=== PATIENT | male | born 1980 | race Caucasian/White ===

== ENCOUNTER 2017-05-25 09:25 | Emergency (ER) | payer MEDICAID ==
[~2017-05-25] VITALS: Ht 160 cm; Wt 69.7 kg
[2017-05-25] MEDS ORDERED: KETOROLAC 30 MG/1 ML IM ONE (10:00)
[2017-05-25 10:14] LABS: HEMATOCRIT 42.2 % (39.2-51.8); HEMOGLOBIN 14.5 g/dL (13.7-18.0); WHITE BLOOD COUNT 12.2 x10^3/uL (3.4-10)
[2017-05-25 10:16] LABS: BLOOD UREA NITROGEN 17 mg/dL (7-18)
[2017-05-25 11:26] VITALS: BP 118/65
== END 2017-05-25 11:27 | disposition home or self-care (01) ==
LOC: ED 10:16
DX: R07.9 Chest pain, unspecified (principal); F17.200 Nicotine dependence, unspecified, uncomplicated
CPT/HCPCS: 36415; 71020; 80048; 81003; 82040; 85025; 93005; 96372; 99285; J1885

== ENCOUNTER 2018-05-09 06:26 | Emergency (ER) | payer MEDICAID ==
[~2018-05-09] VITALS: Ht 158.8 cm; Wt 63.9 kg
[2018-05-09 06:31] VITALS: BP 130/80
[2018-05-09] MEDS ORDERED: DEXAMETHASONE 4 MG TABLET ONE (06:51)
[2018-05-09] MEDS ORDERED: DEXAMETHASONE 4 MG TABLET PO ONE (07:00)
== END 2018-05-09 06:57 | disposition home or self-care (01) ==
LOC: ED 06:50
DX: K02.9 Dental caries, unspecified (principal); J02.0 Streptococcal pharyngitis; K21.9 Gastro-esophageal reflux disease without esophagitis; F17.210 Nicotine dependence, cigarettes, uncomplicated
CPT/HCPCS: 99283

== ENCOUNTER 2019-07-19 05:38 | Emergency (ER) | payer MEDICAID, OTHER ==
[~2019-07-19] VITALS: Ht 160 cm; Wt 67.3 kg
[2019-07-19] MEDS ORDERED: ONDANSETRON 2MG/ML, 2ML ONE (05:56)
[2019-07-19] MEDS ORDERED: MAALOX/HYOSCYAMINE/LIDOCAINE 45 ML BTL ONE (05:57)
[2019-07-19] MEDS ORDERED: FAMOTIDINE 20 MG/2 ML ONE (05:57)
[2019-07-19] MEDS ORDERED: SODIUM CHLORIDE FLUSH 10ML SYR IVF ONE (06:00)
[2019-07-19] MEDS ORDERED: ONDANSETRON 2MG/ML, 2ML IVPush ONE (06:00)
[2019-07-19] MEDS ORDERED: FAMOTIDINE 20 MG/2 ML IV ONE (06:00)
[2019-07-19] MEDS ORDERED: MAALOX/HYOSCYAMINE/LIDOCAINE 45 ML BTL PO ONE (06:00)
--- NOTE | 2019-07-19 06:09 | NUR ---
THIS IS A 39Y M THAT COMES IN FOR ABD PAIN X2-3WKS. PT STS HE HAS HAD EPIGASTRIC PAIN OFF AND ON FOR WEEKS WORSENING WHEN HE WAKES IN THE MORNINGS, HE USUALLY VOMITS AND THE PAIN IS IMPROVED. PT CONNECTED TO MONITORING, VSS, NADN. PT MEDICATED PER MAR
[2019-07-19 06:17] LABS: BASOPHILS # (AUTO) 0.05 x10^3/uL (0-0.1); BASOPHILS % (AUTO) 1 % (0-1); EOSINOPHILS # (AUTO) 0.23 x10^3/uL (0-0.4); EOSINOPHILS % (AUTO) 3 % (1-7); LYMPHOCYTES # (AUTO) 2.91 x10^3/uL (1-3.4); LYMPHOCYTES % (AUTO) 31 % (22-44); MD NO; MEAN CORPUSCULAR HEMOGLOBIN 31.2 pg (27.5-34.5); MEAN CORPUSCULAR HGB CONC 33.4 g/dL (33.2-36.2); MEAN CORPUSCULAR VOLUME 93.6 fL (81-97); MONOCYTES # (AUTO) 0.67 x10^3/uL (0.2-0.8); MONOCYTES % (AUTO) 7 % (2-9); NEUTROPHILS # (AUTO) 5.49 x10^3/uL (1.8-6.8); NEUTROPHILS % (AUTO) 59 % (42-75); PLATELET COUNT 336 x10^3/uL (130-400); RED BLOOD COUNT 4.69 x10^6/uL (4.38-5.82); RED CELL DISTRIBUTION WIDTH 13.1 % (9.4-14.8)
[2019-07-19 06:29] LABS: ALANINE AMINOTRANSFERASE 223 U/L (12-78); ALBUMIN 3.7 g/dL (3.4-5.0); ANION GAP 4 mmol/L (5-15); CALCIUM 8.9 mg/dL (8.5-10.1); CHLORIDE 111 mmol/L (98-107); CREATININE 0.92 mg/dL (0.7-1.3)
[2019-07-19 06:32] LABS: ALKALINE PHOSPHATASE 107 U/L (45-117); BILIRUBIN,TOTAL 0.2 mg/dL (0.2-1.0); TOTAL PROTEIN 7.7 g/dL (6.4-8.2)
--- NOTE | 2019-07-19 06:49 | NUR ---
REPORT RECEIVED FROM ANA PEÑA.
[2019-07-19 06:54] VITALS: BP 113/73
--- NOTE | 2019-07-19 06:55 | NUR ---
PT IS RESTING ON GURNEY. 1L NS BOLUS STARTED. URINE COLLECTED SENT TO LAB. VS STABLE. CALL LIGHT IN REACH. DENIES FURTHER NEEDS AT THIS TIME.
[2019-07-19] MEDS ORDERED: SODIUM CHLORIDE 0.9% 1,000ML IVBOLUS ONE (07:00)
[2019-07-19 07:05] LABS: CULTURE INDICATED? NO; MICROSCOPIC NOT IND
--- NOTE | 2019-07-19 07:43 | NUR ---
Patient given discharge instructions and they have confirmed that they understand the instructions. Patient ambulatory with steady gait.
== END 2019-07-19 07:45 | disposition home or self-care (01) ==
LOC: ED 05:58
DX: K29.00 Acute gastritis without bleeding (principal); K85.00 Idiopathic acute pancreatitis without necrosis or infection; B19.10 Unspecified viral hepatitis B without hepatic coma; K21.9 Gastro-esophageal reflux disease without esophagitis; R11.2 Nausea with vomiting, unspecified
CPT/HCPCS: 36415; 76700; 80053; 80074; 81003; 83690; 85025; 93005; 96361; 96374; 96375; 99284; J2405; J3490; J7030

== ENCOUNTER 2019-09-18 06:48 | Emergency (ER) | payer OTHER ==
[~2019-09-18] VITALS: Ht 160 cm; Wt 65.9 kg
[2019-09-18 06:52] VITALS: BP 141/81
--- NOTE | 2019-09-18 07:03 | NUR ---
pt woke up with increased sob and cough this morning. VSS. Pt has hx of asthma as a child. Pt speaking in full sentences with some increased effort. pt ambulated to room and is changing into gown.
--- NOTE | 2019-09-18 07:16 | NUR ---
I AM ASSUMING CARE OF THIS PT FROM CLAUDIA (CASEY) AT THIS TIME. SBAR WAS EXCHANGED AT THE BEDSIDE.
[2019-09-18 08:23] LABS: BASOPHILS # (AUTO) 0.06 x10^3/uL (0-0.1); BASOPHILS % (AUTO) 1 % (0-1); EOSINOPHILS # (AUTO) 0.12 x10^3/uL (0-0.4); EOSINOPHILS % (AUTO) 2 % (1-7); LYMPHOCYTES # (AUTO) 2.61 x10^3/uL (1-3.4); LYMPHOCYTES % (AUTO) 34 % (22-44); MD NO; MEAN CORPUSCULAR HEMOGLOBIN 31.1 pg (27.5-34.5); MEAN CORPUSCULAR HGB CONC 33.7 g/dL (33.2-36.2); MEAN CORPUSCULAR VOLUME 92.3 fL (81-97); MONOCYTES # (AUTO) 0.58 x10^3/uL (0.2-0.8); MONOCYTES % (AUTO) 8 % (2-9); NEUTROPHILS # (AUTO) 4.41 x10^3/uL (1.8-6.8); NEUTROPHILS % (AUTO) 57 % (42-75); PLATELET COUNT 324 x10^3/uL (130-400); RED CELL DISTRIBUTION WIDTH 13.1 % (9.4-14.8)
[2019-09-18 08:28] LABS: ALANINE AMINOTRANSFERASE 108 U/L (12-78); ALBUMIN 3.8 g/dL (3.4-5.0); ANION GAP 7 mmol/L (5-15); CHLORIDE 111 mmol/L (98-107); CREATININE 0.87 mg/dL (0.7-1.3)
[2019-09-18 08:32] LABS: ALKALINE PHOSPHATASE 84 U/L (45-117); BILIRUBIN,TOTAL 0.4 mg/dL (0.2-1.0); TOTAL PROTEIN 7.7 g/dL (6.4-8.2); TROPONIN I < 0.015 ng/mL (0.000-0.045)
== END 2019-09-18 09:08 | disposition home or self-care (01) ==
LOC: ED 07:09
DX: R06.00 Dyspnea, unspecified (principal); R00.0 Tachycardia, unspecified; R94.5 Abnormal results of liver function studies; K21.9 Gastro-esophageal reflux disease without esophagitis
CPT/HCPCS: 36415; 71045; 80053; 83880; 84484; 85025; 93005; 99285

== ENCOUNTER 2019-10-02 21:31 | Emergency (ER) | payer OTHER ==
[~2019-10-02] VITALS: Ht 165.1 cm; Wt 64.0 kg
[2019-10-02 21:34] VITALS: BP 135/92
== END 2019-10-02 22:06 | disposition home or self-care (01) ==
LOC: ED 21:52
DX: F41.1 Generalized anxiety disorder (principal); R07.89 Other chest pain; R00.2 Palpitations; K21.9 Gastro-esophageal reflux disease without esophagitis; F17.210 Nicotine dependence, cigarettes, uncomplicated
CPT/HCPCS: 93005; 99283

== ENCOUNTER 2020-07-21 22:07 | Emergency (ER) | payer OTHER ==
[~2020-07-21] VITALS: Ht 160 cm; Wt 76.9 kg
--- NOTE | 2020-07-21 22:17 | NUR ---
ERP AT BEDSIDE
[2020-07-21] MEDS ORDERED: FAMOTIDINE 20 MG TABLET PO ONE (22:30)
[2020-07-21] MEDS ORDERED: MAALOX/HYOSCYAMINE/LIDOCAINE 45 ML BTL ONE (22:30)
[2020-07-21] MEDS ORDERED: MAALOX/HYOSCYAMINE/LIDOCAINE 45 ML BTL PO ONE (22:30)
[2020-07-21] MEDS ORDERED: FAMOTIDINE 20 MG TABLET ONE (22:30)
--- NOTE | 2020-07-21 22:34 | NUR ---
PT TO IMAGING
--- NOTE | 2020-07-21 22:40 | NUR ---
LAB AT BEDSIDE. PT MEDICATED PER EMAR
[2020-07-21 22:55] LABS: BASOPHILS % (AUTO) 1 % (0-1); EOSINOPHILS % (AUTO) 3 % (1-7); LYMPHOCYTES % (AUTO) 47 % (22-44); MD NO; MEAN CORPUSCULAR HEMOGLOBIN 31.8 pg (27.5-34.5); MEAN CORPUSCULAR HGB CONC 34.7 g/dL (33.2-36.2); MONOCYTES % (AUTO) 7 % (2-9); NEUTROPHILS % (AUTO) 43 % (42-75); PLATELET COUNT 349 x10^3/uL (130-400); RED BLOOD COUNT 4.33 x10^6/uL (4.38-5.82); RED CELL DISTRIBUTION WIDTH 13.3 % (9.4-14.8)
[2020-07-21 23:01] LABS: ALANINE AMINOTRANSFERASE 84 U/L (12-78); ALBUMIN 3.9 g/dL (3.4-5.0); ANION GAP 8 mmol/L (5-15); CALCIUM 8.9 mg/dL (8.5-10.1); CHLORIDE 108 mmol/L (98-107); CREATININE 1.11 mg/dL (0.7-1.3)
--- NOTE | 2020-07-21 23:05 | NUR ---
PT SITTING UPRIGHT ON GURNEY. REPORTS DECREASED DISCOMFORT AND "WAS ABLE TO BURP" FOLLOWING RESIN FILTERER. PT DENIES ANY ADDITIONAL NEEDS AT THIS TIME. CALL LIGHT AND PERSONAL BELONGINGS WITHIN REACH.
[2020-07-21 23:06] LABS: ALKALINE PHOSPHATASE 84 U/L (45-117); BILIRUBIN,TOTAL 0.3 mg/dL (0.2-1.0); TOTAL PROTEIN 7.7 g/dL (6.4-8.2); TROPONIN I < 0.015 ng/mL (0.000-0.045)
[2020-07-21 23:11] VITALS: BP 114/68
--- NOTE | 2020-07-21 23:24 | NUR ---
ERP AT BEDSIDE
--- NOTE | 2020-07-21 23:40 | NUR ---
Patient given discharge instructions and they have confirmed that they understand the instructions. Patient ambulatory with steady gait.
== END 2020-07-21 23:42 | disposition home or self-care (01) ==
LOC: ED 22:37
DX: K29.00 Acute gastritis without bleeding (principal); R10.13 Epigastric pain; K21.9 Gastro-esophageal reflux disease without esophagitis; F17.210 Nicotine dependence, cigarettes, uncomplicated
CPT/HCPCS: 36415; 74022; 80053; 80320; 83690; 84484; 85025; 93005; 99285; 99406; G0480

== ENCOUNTER 2020-10-04 06:11 | Emergency (ER) | payer BC, OTHER ==
[~2020-10-04] VITALS: Ht 160 cm; Wt 65.5 kg
[2020-10-04 06:12] VITALS: BP 145/64
[2020-10-04] MEDS ORDERED: IBUPROFEN 800 MG TABLET ONE (06:25)
[2020-10-04] MEDS ORDERED: IBUPROFEN 800 MG TABLET PO ONE (06:30)
--- NOTE | 2020-10-04 06:41 | NUR ---
PT CAME IN AMBULATING TO ROOM. PT STATES HE WAS SKATING AND FELL AND EXTENDED HIS RIGHT HAND AND IT HIT THE GROUND. PT WAITED TO SEE IF IT WOULD FEEL BETTER, BUT THE PAIN WAS TOO MUCH. ON ASSESMENT PT HAS SOME SWELLING TO DORSAL PORTION OF RIGHT HAND MEDIALLY. 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 PAIN MEDS GIVEN PER MD ORDER, AND PA TO BEDSIDE TO EVAL. PORTABLE XRAY DONE OF PTS RIGHT WRIST.
--- NOTE | 2020-10-04 06:51 | NUR ---
REPORT TO KRISTEN PEÑA.
--- NOTE | 2020-10-04 06:56 | NUR ---
REPORT RECEIVED FROM KATHY PEÑA.
--- NOTE | 2020-10-04 07:41 | NUR ---
Patient given discharge instructions and they have confirmed that they understand the instructions. Patient ambulatory with steady gait.
== END 2020-10-04 07:42 | disposition home or self-care (01) ==
LOC: ED 06:27
DX: S63.521A Sprain of radiocarpal joint of right wrist, initial encounter (principal); W18.30XA Fall on same level, unspecified, initial encounter; Y93.89 Activity, other specified; Y92.410 Unspecified street and highway as the place of occurrence of the external cause; Y99.8 Other external cause status
CPT/HCPCS: 29125; 99283